=== PATIENT | male | born 1990 | race Hispanic/Latino ===

== ENCOUNTER 2021-06-13 10:13 | Emergency (ER) | payer SELFPAY ==
[~2021-06-13] VITALS: Ht 170.2 cm; Wt 172.4 kg
[2021-06-13] MEDS ORDERED: PREDNISONE20 MG PO (13:06)
[2021-06-13 13:17] VITALS: BP 146/81
== END 2021-06-13 13:18 | disposition home or self-care (01) ==
LOC: ER 10:24
DX: R05.9 Cough, unspecified (principal); J40 Bronchitis, not specified as acute or chronic; Z20.822 Contact with and (suspected) exposure to COVID-19
CPT/HCPCS: 71045; 99284; U0002

== ENCOUNTER 2022-04-24 16:45 | Inpatient (IN) | payer SELFPAY ==
[~2022-04-24] VITALS: Ht 170.2 cm; Wt 172.4 kg
[~2022-04-24 16:45] MED LIST: PREDNISONE20 MG PO
[2022-04-24] MEDS ORDERED: SODIUM CHLORIDE 0.9% 1000ML 1,000 ML IV STA (18:20)
[2022-04-24] MEDS ORDERED: ONDANSETRON HCL INJ 2MG/ML 2ML 2 MG/ML VIAL IV PRN (18:30)
[2022-04-24] MEDS ORDERED: FENTANYL CITRATE/PF 100MCG/2 ML INJ IV PRN (18:45)
[2022-04-24 18:57] LABS: BASOPHILS % 0.1 % (0.0-1.0); EOSINOPHILS # (AUTO) 0.1 (0.0-0.4); EOSINOPHILS % 0.5 % (0.0-6.0); HEMATOCRIT 46.8 % (38.2-49.6); HEMOGLOBIN 15.2 g/dL (14.0-18.0); LYMPHOCYTES # (AUTO) 1.9 (1.0-3.2); LYMPHOCYTES % 12.6 % (18.0-39.1); MEAN CORPUSCULAR HGB CONC 32.5 g/dL (31-35); MEAN CORPUSCULAR VOLUME 83.3 fL (81-99); MONOCYTES # (AUTO) 0.8 (0.2-0.8); NEUTROPHILS # (AUTO) 12.3 (2.1-6.9); NEUTROPHILS % 81.5 % (38.7-80.0); PLATELET COUNT 271 x10e3/uL (140-360); RED BLOOD COUNT 5.62 x10e6/uL (4.3-5.7); RED CELL DISTRIBUTION WIDTH 13.8 % (11.7-14.4)
[2022-04-24 19:17] LABS: ALBUMIN 3.2 g/dL (3.5-5.0); ALBUMIN/GLOBULIN RATIO 0.6 (0.8-2.0); CALCIUM 8.8 mg/dL (8.4-10.2); CREATININE, SERUM 0.74 mg/dL (0.72-1.25)
[2022-04-24] MEDS ORDERED: IOPAMIDOL 370 MG/ML 100 ML INFUS..BTL INJ ONE (19:40)
[2022-04-24] MEDS ORDERED: INSULIN REGULAR, HUMAN 100 UNIT/1 ML IV ONE (19:45)
[2022-04-24] MEDS ORDERED: FLUCONAZOLE 100 MG/NS 50 ML 50 ML IV STA (20:00)
[2022-04-24] MEDS ORDERED: Vancomycin IV 1 GM in SODIUM CHLORIDE 0.9% 250ML 250 ML IV STA (20:00)
[2022-04-24] MEDS: PIPERACILLIN/TAZOBACTAM 4.5 GM in SODIUM CHLORIDE 0.9% 100 ML IV SCH ×2 (20:00→20:34)
[2022-04-24 20:13] LABS: CLARITY,URINE HAZY (CLEAR); COLOR,URINE YELLOW (YELLOW); LEUKOCYTE ESTERASE ,URINE NEGATIVE (NEGATIVE); NITRITE,URINE NEGATIVE (NEGATIVE); PROTEIN,URINE DIPSTICK 1+ (NEGATIVE)
[2022-04-24 20:14] LABS: BACTERIA,URINE FEW /HPF; EPITHELIAL CELLS,URINE FEW /LPF; KETONES,URINE >=160 (NEGATIVE); URINE UROBILINOGEN 0.2 mg/dL (0.2 - 1)
[2022-04-24] MEDS: FLUCONAZOLE 100 MG TAB PO SCH (20:30)
[2022-04-24] MEDS: SODIUM CHLORIDE 0.9% 1000ML 1,000 ML IV SCH ×2 (21:30→23:47)
[2022-04-24] MEDS ORDERED: SODIUM CHLORIDE 0.9% 1000ML 1,000 ML IV SCH (21:30)
[2022-04-24] MEDS ORDERED: ACETAMINOPHEN 325 MG TAB PO ONE (22:45)
[2022-04-24 23:01] VITALS: BP 131/74
[2022-04-24 23:09] VITALS: BP 131/74
[2022-04-24 23:16] VITALS: BP 131/74
[2022-04-24] MEDS: Morphine 4mg INJECTION 4 MG/ML INJ IV PRN (23:48)
[2022-04-24 23:51] VITALS: BP 131/74
[2022-04-25] VITALS (8 sets, daily range): BP systolic 131–147; BP diastolic 74–95
[2022-04-25 06:43] LABS: BASOPHILS % 0.2 % (0.0-1.0); EOSINOPHILS # (AUTO) 0.1 (0.0-0.4); EOSINOPHILS % 0.3 % (0.0-6.0); HEMOGLOBIN 13.3 g/dL (14.0-18.0); LYMPHOCYTES # (AUTO) 2.3 (1.0-3.2); LYMPHOCYTES % 13.3 % (18.0-39.1); MEAN CORPUSCULAR HGB CONC 32.4 g/dL (31-35); MEAN CORPUSCULAR VOLUME 83.2 fL (81-99); NEUTROPHILS # (AUTO) 13.9 (2.1-6.9); NEUTROPHILS % 79.6 % (38.7-80.0); PLATELET COUNT 255 x10e3/uL (140-360); RED BLOOD COUNT 4.93 x10e6/uL (4.3-5.7); RED CELL DISTRIBUTION WIDTH 13.9 % (11.7-14.4)
[2022-04-25 07:09] LABS: ANION GAP 15.1 mmol/L (8-16); BLOOD UREA NITROGEN < 5 mg/dL (7-26); CALCIUM 8.4 mg/dL (8.4-10.2); CARBON DIOXIDE 23 mmol/L (22-29); CHLORIDE 100 mmol/L (98-107); CREATININE, SERUM 0.65 mg/dL (0.72-1.25); GLUCOSE 326 mg/dL (74-118); POTASSIUM 4.1 mmol/L (3.5-5.1); SODIUM 134 mmol/L (136-145)
[2022-04-25 07:15] LABS: BUN/CREATININE RATIO 8 (6-25)
[2022-04-25] MEDS ORDERED: DEXTROSE 50% SYRINGE 50 ML IV PRN (07:15)
[2022-04-25] MEDS ORDERED: ACETAMINOPHEN 325 MG TAB PO PRN (07:15)
[2022-04-25] MEDS: INSULIN REGULAR, HUMAN 100 UNIT/1 ML SQ SCH ×4 (09:29→21:39)
[2022-04-25] MEDS: FLUCONAZOLE 100 MG TAB PO SCH (09:33)
[2022-04-25] MEDS: PIPERACILLIN/TAZOBACTAM 4.5 GM in SODIUM CHLORIDE 0.9% 100 ML IV SCH ×2 (10:30→17:17)
[2022-04-25] MEDS: METFORMIN HCL 500 MG TAB PO SCH ×2 (12:00→17:17)
[2022-04-25] MEDS ORDERED: SEVOFLURANE INHAL SOLN 250 ML PEN BTL ONE (12:15)
[2022-04-25] MEDS ORDERED: POVIDONE IODINE 0.05% 0.05 % ML PO ONE (12:15)
[2022-04-25] MEDS ORDERED: ACETAMINOPHEN 1000 MG/100 ML IV ONE (12:15)
[2022-04-25] MEDS ORDERED: PROPOFOL IV EMULSION 10 MG/ML 20 ML VIAL ONE (12:15)
[2022-04-25] MEDS ORDERED: LIDOCAINE HCL 2% LOCAL INJ 5 ML SDV VIAL INJ ONE (12:15)
[2022-04-25] MEDS ORDERED: ONDANSETRON HCL INJ 2MG/ML 2ML 2 MG/ML VIAL ONE (12:15)
[2022-04-25] MEDS ORDERED: FENTANYL CITRATE/PF 100MCG/2 ML INJ ONE (12:38)
[2022-04-25] MEDS: Morphine 4mg INJECTION 4 MG/ML INJ IV PRN ×3 (13:25→21:43)
[2022-04-25] MEDS ORDERED: LIDOCAINE 1% W/EPINEPHRINE 20 ML VIAL ONE (16:37)
[2022-04-25] MEDS: ONDANSETRON HCL INJ 2MG/ML 2ML 2 MG/ML VIAL IV PRN (17:24)
[2022-04-25] MEDS: SODIUM CHLORIDE 0.9% 1000ML 1,000 ML IV SCH ×2 (17:40→20:36)
[2022-04-25] MEDS: INSULIN GLARGINE 100 UNITS/ML VIAL SQ SCH (21:38)
[2022-04-26] VITALS (7 sets, daily range): BP systolic 117–144; BP diastolic 67–95
[2022-04-26] MEDS: SODIUM CHLORIDE 0.9% 1000ML 1,000 ML IV SCH (05:08)
[2022-04-26 05:45] LABS: BASOPHILS % 0.3 % (0.0-1.0); EOSINOPHILS # (AUTO) 0.1 (0.0-0.4); EOSINOPHILS % 0.8 % (0.0-6.0); HEMOGLOBIN 13.6 g/dL (14.0-18.0); LYMPHOCYTES # (AUTO) 2.2 (1.0-3.2); LYMPHOCYTES % 15.2 % (18.0-39.1); MEAN CORPUSCULAR HGB CONC 33.2 g/dL (31-35); MEAN CORPUSCULAR VOLUME 81.5 fL (81-99); MONOCYTES # (AUTO) 0.8 (0.2-0.8); MONOCYTES % 5.1 % (4.4-11.3); NEUTROPHILS # (AUTO) 11.4 (2.1-6.9); NEUTROPHILS % 78.1 % (38.7-80.0); PLATELET COUNT 250 x10e3/uL (140-360); RED BLOOD COUNT 5.03 x10e6/uL (4.3-5.7)
[2022-04-26 05:56] LABS: ANION GAP 14.8 mmol/L (8-16); BLOOD UREA NITROGEN < 5 mg/dL (7-26); CALCIUM 8.5 mg/dL (8.4-10.2); CARBON DIOXIDE 25 mmol/L (22-29); CHLORIDE 101 mmol/L (98-107); CREATININE, SERUM 0.68 mg/dL (0.72-1.25); GLUCOSE 290 mg/dL (74-118); POTASSIUM 3.8 mmol/L (3.5-5.1); SODIUM 137 mmol/L (136-145)
[2022-04-26 05:58] LABS: BUN/CREATININE RATIO 7 (6-25)
[2022-04-26] MEDS: INSULIN REGULAR, HUMAN 100 UNIT/1 ML SQ SCH ×4 (07:42→21:00)
[2022-04-26] MEDS: PIPERACILLIN/TAZOBACTAM 4.5 GM in SODIUM CHLORIDE 0.9% 100 ML IV SCH (09:05)
[2022-04-26] MEDS: FLUCONAZOLE 100 MG TAB PO SCH (09:06)
[2022-04-26] MEDS: METFORMIN HCL 500 MG TAB PO SCH ×3 (09:06→16:41)
[2022-04-26] MEDS: Morphine 4mg INJECTION 4 MG/ML INJ IV PRN ×2 (09:43→20:30)
[2022-04-26] MEDS ORDERED: Morphine 4mg INJECTION 4 MG/ML INJ IV STA (12:34)
[2022-04-26] MEDS: Vancomycin IV 1 GM in SODIUM CHLORIDE 0.9% 250ML 250 ML IV SCH ×2 (12:55→20:34)
[2022-04-26] MEDS: ENOXAPARIN SOD INJ 40 MG/0.4 ML SYR SC SCH (16:42)
[2022-04-26] MEDS: ONDANSETRON HCL INJ 2MG/ML 2ML 2 MG/ML VIAL IV PRN (20:30)
[2022-04-26] MEDS: INSULIN GLARGINE 100 UNITS/ML VIAL SQ SCH (21:00)
[2022-04-27] VITALS (8 sets, daily range): BP systolic 123–153; BP diastolic 51–98
[2022-04-27] MEDS: ONDANSETRON HCL INJ 2MG/ML 2ML 2 MG/ML VIAL IV PRN (00:23)
[2022-04-27] MEDS: Morphine 4mg INJECTION 4 MG/ML INJ IV PRN ×2 (00:23→09:32)
[2022-04-27 05:42] LABS: BASOPHILS % 0.2 % (0.0-1.0); EOSINOPHILS # (AUTO) 0.2 (0.0-0.4); EOSINOPHILS % 1.6 % (0.0-6.0); HEMATOCRIT 40.3 % (38.2-49.6); HEMOGLOBIN 12.9 g/dL (14.0-18.0); LYMPHOCYTES # (AUTO) 2.3 (1.0-3.2); LYMPHOCYTES % 24.5 % (18.0-39.1); MEAN CORPUSCULAR HEMOGLOBIN 27.2 pg (28-32); MONOCYTES # (AUTO) 0.5 (0.2-0.8); MONOCYTES % 5.1 % (4.4-11.3); NEUTROPHILS # (AUTO) 6.3 (2.1-6.9); NEUTROPHILS % 68.3 % (38.7-80.0); PLATELET COUNT 245 x10e3/uL (140-360); RED BLOOD COUNT 4.74 x10e6/uL (4.3-5.7); RED CELL DISTRIBUTION WIDTH 13.8 % (11.7-14.4)
[2022-04-27] MEDS: METFORMIN HCL 500 MG TAB PO SCH ×3 (09:32→17:00)
[2022-04-27] MEDS ORDERED: SODIUM CHLORIDE 0.9% 250ML 250 ML ONE (09:50)
[2022-04-27] MEDS: INSULIN REGULAR, HUMAN 100 UNIT/1 ML SQ SCH ×4 (10:27→22:11)
[2022-04-27] MEDS ORDERED: TRAMADOL HCL 50 MG TAB PO PRN (10:30)
[2022-04-27] MEDS: CEFTRIAXONE 2 GM in SODIUM CHLORIDE 0.9% 100 ML IV SCH (12:30)
[2022-04-27] MEDS: GLIPIZIDE 5 MG TAB PO SCH (16:48)
[2022-04-27] MEDS: NYSTATIN/TRIAMCINOLONE 15 GM CR TOP SCH (17:00)
[2022-04-27] MEDS: ENOXAPARIN SOD INJ 40 MG/0.4 ML SYR SC SCH (17:00)
[2022-04-27] MEDS: ACETAMINOPHEN/CODEINE 300MG - 30MG TAB PO PRN (17:01)
[2022-04-27] MEDS ORDERED: INSULIN GLARGINE 100 UNITS/ML VIAL SQ SCH (21:00)
[2022-04-28] VITALS: BP 136/97
[2022-04-28] MEDS: ACETAMINOPHEN/CODEINE 300MG - 30MG TAB PO PRN ×2 (00:09→10:49)
[2022-04-28 04:10] VITALS: BP 133/75
[2022-04-28] MEDS: GLIPIZIDE 5 MG TAB PO SCH (07:30)
[2022-04-28] MEDS: INSULIN REGULAR, HUMAN 100 UNIT/1 ML SQ SCH (07:30)
[2022-04-28] MEDS: METFORMIN HCL 500 MG TAB PO SCH (08:00)
[2022-04-28 08:13] VITALS: BP 120/71
[2022-04-28] MEDS: CEFTRIAXONE 2 GM in SODIUM CHLORIDE 0.9% 100 ML IV SCH (08:32)
[2022-04-28] MEDS: NYSTATIN/TRIAMCINOLONE 15 GM CR TOP SCH (08:33)
[2022-04-28] MEDS ORDERED: KEFLEX125 MG/5 M PO (09:43)
[2022-04-28] MEDS ORDERED: METFORMIN HCL500 MG PO (09:43)
[2022-04-28] MEDS ORDERED: GLIPIZIDE5 MG PO (09:43)
[2022-04-28] MEDS ORDERED: ULTRAM 50MG50 MG PO (10:19)
== END 2022-04-28 10:58 | disposition home or self-care (01) | DRG 717 ==
LOC: ER 17:06 → ERHOLD 21:38 → MED/SURG2 22:53
PROVIDERS: ADMIT Internal Medicine; ATTEND Internal Medicine
PROC: 0V950ZZ Drainage of Scrotum, Open Approach (ICD-10-PCS; principal; 2022-04-25 16:07)
DX: N49.2 Inflammatory disorders of scrotum (principal); L03.314 Cellulitis of groin; N39.0 Urinary tract infection, site not specified; Z68.43 Body mass index [BMI] 50.0-59.9, adult; B95.1 Streptococcus, group B, as the cause of diseases classified elsewhere; E66.01 Morbid (severe) obesity due to excess calories; Z20.822 Contact with and (suspected) exposure to COVID-19; G47.33 Obstructive sleep apnea (adult) (pediatric); R59.1 Generalized enlarged lymph nodes; E11.69 Type 2 diabetes mellitus with other specified complication
CPT/HCPCS: 0223U; 36415; 74177; 80048; 80053; 81001; 82948; 83036; 83605; 84443; 85025; 87040; 87071; 87075; 87086; 87205; 94799; 96361; 96372; 99251; 99284; J0696; J1650; J1817; J2001; J2270; J2405; J2543; J3010; J3370; J7030; J7050; Q9967

== ENCOUNTER 2022-06-10 02:12 | Inpatient (IN) | payer SELFPAY ==
[~2022-06-10] VITALS: Ht 170.2 cm; Wt 172.4 kg
[2022-06-10] VITALS (8 sets, daily range): BP systolic 104–125; BP diastolic 62–75
[~2022-06-10 02:12] MED LIST changes: +GLIPIZIDE5 MG PO; +KEFLEX125 MG/5 M PO; +METFORMIN HCL500 MG PO; +ULTRAM 50MG50 MG PO
[2022-06-10] MEDS ORDERED: ACETAMINOPHEN 325 MG TAB PO ONE (02:30)
[2022-06-10 03:00] LABS: BASOPHILS % 0.2 % (0.0-1.0); EOSINOPHILS % 0.1 % (0.0-6.0); HEMATOCRIT 42.6 % (38.2-49.6); HEMOGLOBIN 13.8 g/dL (14.0-18.0); LYMPHOCYTES # (AUTO) 2.4 (1.0-3.2); LYMPHOCYTES % 13.4 % (18.0-39.1); MEAN CORPUSCULAR HEMOGLOBIN 27.8 pg (28-32); MEAN CORPUSCULAR HGB CONC 32.4 g/dL (31-35); MEAN CORPUSCULAR VOLUME 85.9 fL (81-99); MONOCYTES % 5.2 % (4.4-11.3); NEUTROPHILS # (AUTO) 14.7 (2.1-6.9); NEUTROPHILS % 80.7 % (38.7-80.0); PLATELET COUNT 299 x10e3/uL (140-360); RED BLOOD COUNT 4.96 x10e6/uL (4.3-5.7)
[2022-06-10 03:18] LABS: ALBUMIN/GLOBULIN RATIO 0.6 (0.8-2.0); ANION GAP 16.4 mmol/L (8-16); CALCIUM 9.4 mg/dL (8.4-10.2); CREATININE, SERUM 0.77 mg/dL (0.72-1.25); POTASSIUM 4.4 mmol/L (3.5-5.1)
[2022-06-10] MEDS ORDERED: ONDANSETRON HCL INJ 2MG/ML 2ML 2 MG/ML VIAL IV STA (03:28)
[2022-06-10] MEDS ORDERED: ACETAMINOPHEN 1000 MG/100 ML IV STA (03:30)
[2022-06-10] MEDS ORDERED: IOPAMIDOL 370 MG/ML 100 ML INFUS..BTL INJ ONE (03:45)
[2022-06-10] MEDS ORDERED: ACETAMINOPHEN 1000 MG/100 ML 100 ML IV ONE (03:48)
[2022-06-10 04:01] LABS: CLARITY,URINE SL CLOUDY (CLEAR); COLOR,URINE YELLOW (YELLOW); KETONES,URINE 2+ (NEGATIVE); LEUKOCYTE ESTERASE ,URINE NEGATIVE (NEGATIVE); NITRITE,URINE NEGATIVE (NEGATIVE); PROTEIN,URINE DIPSTICK 1+ (NEGATIVE); URINE UROBILINOGEN 0.2 mg/dL (0.2 - 1)
[2022-06-10 04:05] LABS: BACTERIA,URINE FEW /HPF; EPITHELIAL CELLS,URINE MODERATE /LPF; MUCUS,URINE MODERATE (RARE); RBC,URINE 0-5 /HPF (0-5); WBC,URINE (MAN) 0-5 /HPF (0-5)
[2022-06-10] MEDS ORDERED: ONDANSETRON HCL INJ 2MG/ML 2ML 2 MG/ML VIAL IV PRN (05:00)
[2022-06-10] MEDS ORDERED: DEXTROSE 50% SYRINGE 50 ML IV PRN (05:00)
[2022-06-10] MEDS ORDERED: ACETAMINOPHEN 325 MG TAB PO PRN (05:00)
[2022-06-10] MEDS: Vancomycin IV 1 GM in SODIUM CHLORIDE 0.9% 250ML 250 ML IV SCH ×2 (06:28→16:57)
[2022-06-10] MEDS: SODIUM CHLORIDE 0.9% 1000ML 1,000 ML IV SCH ×3 (06:28→20:09)
[2022-06-10] MEDS: INSULIN REGULAR, HUMAN 100 UNIT/1 ML SQ SCH ×4 (08:41→21:00)
[2022-06-10] MEDS: Morphine 4mg INJECTION 4 MG/ML INJ IV PRN ×3 (08:43→20:17)
[2022-06-10] MEDS ORDERED: LIDOCAINE 1% 10 ML MULTIDOSE VIAL IJ ONE (15:45)
[2022-06-10] MEDS ORDERED: SODIUM CHLORIDE 0.9% 250ML 250 ML ONE (17:12)
[2022-06-10] MEDS ORDERED: Morphine 2mg Syringe 2 MG/ML SYR IV ONE (19:00)
[2022-06-11] VITALS: BP 127/67
[2022-06-11] MEDS: Morphine 4mg INJECTION 4 MG/ML INJ IV PRN ×4 (00:13→15:35)
[2022-06-11] MEDS: SODIUM CHLORIDE 0.9% 1000ML 1,000 ML IV SCH ×2 (02:54→12:00)
[2022-06-11] MEDS: Vancomycin IV 1 GM in SODIUM CHLORIDE 0.9% 250ML 250 ML IV SCH ×2 (02:54→15:46)
[2022-06-11 04:00] VITALS: BP 123/63
[2022-06-11 05:34] LABS: BASOPHILS % 0.2 % (0.0-1.0); EOSINOPHILS % 0.1 % (0.0-6.0); HEMATOCRIT 38.7 % (38.2-49.6); LYMPHOCYTES # (AUTO) 2.2 (1.0-3.2); LYMPHOCYTES % 13.5 % (18.0-39.1); MEAN CORPUSCULAR HEMOGLOBIN 27.3 pg (28-32); MONOCYTES # (AUTO) 0.7 (0.2-0.8); MONOCYTES % 4.4 % (4.4-11.3); NEUTROPHILS % 81.4 % (38.7-80.0); PLATELET COUNT 255 x10e3/uL (140-360); RED CELL DISTRIBUTION WIDTH 13.4 % (11.7-14.4)
[2022-06-11 05:51] LABS: ALBUMIN 2.5 g/dL (3.5-5.0); ALBUMIN/GLOBULIN RATIO 0.6 (0.8-2.0); ANION GAP 13.6 mmol/L (8-16); CALCIUM 8.3 mg/dL (8.4-10.2); CREATININE, SERUM 0.64 mg/dL (0.72-1.25); POTASSIUM 3.6 mmol/L (3.5-5.1)
[2022-06-11] MEDS: INSULIN REGULAR, HUMAN 100 UNIT/1 ML SQ SCH ×3 (07:30→16:30)
[2022-06-11 08:29] VITALS: BP 125/75
[2022-06-11 09:12] VITALS: BP 125/75
[2022-06-11 11:52] VITALS: BP 135/74
[2022-06-11] MEDS ORDERED: METFORMIN HCL500 MG PO (13:08)
[2022-06-11] MEDS ORDERED: GLIPIZIDE5 MG PO (13:08)
[2022-06-11] MEDS ORDERED: AMOXICILLIN500 MG PO (13:12)
[2022-06-11] MEDS ORDERED: ULTRAM50 MG PO (13:14)
[2022-06-11 16:25] VITALS: BP 138/90
[2022-06-11] MEDS ORDERED: ONDANSETRON HCL 4 MG ORAL DISINTEGRATING TAB PO PRN (18:15)
== END 2022-06-11 18:56 | disposition home or self-care (01) | DRG 603 ==
LOC: ER 02:20 → ERHOLD 04:55 → MED/SURG3 06:07
PROVIDERS: ADMIT Internal Medicine; ATTEND Internal Medicine
PROC: 0J9C0ZZ Drainage of Pelvic Region Subcutaneous Tissue and Fascia, Open Approach (ICD-10-PCS; principal; 2022-06-10)
DX: L03.314 Cellulitis of groin (principal); Z68.43 Body mass index [BMI] 50.0-59.9, adult; E66.01 Morbid (severe) obesity due to excess calories; E11.9 Type 2 diabetes mellitus without complications; Z79.84 Long term (current) use of oral hypoglycemic drugs; Z83.3 Family history of diabetes mellitus; Z82.49 Family history of ischemic heart disease and other diseases of the circulatory system
CPT/HCPCS: 36415; 71045; 74177; 80053; 80202; 81001; 82948; 83605; 85025; 87040; 87071; 87205; 87400; 99284; J1817; J2270; J2405; J2543; J3370; J7030; J7050; Q9967

== ENCOUNTER 2022-07-07 08:52 | Emergency (ER) | payer SELFPAY ==
[~2022-07-07] VITALS: Ht 322.6 cm; Wt 172.4 kg
[~2022-07-07 08:52] MED LIST changes: +AMOXICILLIN500 MG PO; +ULTRAM50 MG PO
[2022-07-07 10:23] LABS: CLARITY,URINE CLOUDY (CLEAR); COLOR,URINE YELLOW (YELLOW); KETONES,URINE 1+ (NEGATIVE); LEUKOCYTE ESTERASE ,URINE NEGATIVE (NEGATIVE); NITRITE,URINE NEGATIVE (NEGATIVE); PROTEIN,URINE DIPSTICK 2+ (NEGATIVE); URINE UROBILINOGEN 1 mg/dL (0.2 - 1)
[2022-07-07 10:40] LABS: BACTERIA,URINE MODERATE /HPF; EPITHELIAL CELLS,URINE FEW /LPF; WBC,URINE (MAN) >50 /HPF (0-5)
[2022-07-07 10:41] LABS: RBC,URINE >50 /HPF (0-5)
[2022-07-07] MEDS ORDERED: CIPRO500 MG PO (11:06)
== END 2022-07-07 11:08 | disposition home or self-care (01) ==
LOC: ER 08:59
DX: R31.9 Hematuria, unspecified (principal); R10.30 Lower abdominal pain, unspecified; K57.90 Diverticulosis of intestine, part unspecified, without perforation or abscess without bleeding; K76.0 Fatty (change of) liver, not elsewhere classified; R16.1 Splenomegaly, not elsewhere classified; E66.01 Morbid (severe) obesity due to excess calories
CPT/HCPCS: 74176; 81001; 99284

== ENCOUNTER 2023-01-16 19:53 | Emergency (ER) | payer OTHER ==
[~2023-01-16] VITALS: Ht 322.6 cm; Wt 172.4 kg
[~2023-01-16 19:53] MED LIST changes: +CIPRO500 MG PO
[2023-01-16 20:30] LABS: BASOPHILS % 0.3 % (0.0-1.0); EOSINOPHILS # (AUTO) 0.2 (0.0-0.4); EOSINOPHILS % 1.3 % (0.0-6.0); HEMATOCRIT 46.8 % (38.2-49.6); HEMOGLOBIN 15.4 g/dL (14.0-18.0); LYMPHOCYTES # (AUTO) 3.7 (1.0-3.2); LYMPHOCYTES % 28.9 % (18.0-39.1); MEAN CORPUSCULAR HEMOGLOBIN 26.8 pg (28-32); MEAN CORPUSCULAR HGB CONC 32.9 g/dL (31-35); MEAN CORPUSCULAR VOLUME 81.4 fL (81-99); MONOCYTES # (AUTO) 0.5 (0.2-0.8); MONOCYTES % 3.8 % (4.4-11.3); NEUTROPHILS # (AUTO) 8.3 (2.1-6.9); NEUTROPHILS % 65.4 % (38.7-80.0); PLATELET COUNT 214 x10e3/uL (140-360); RED BLOOD COUNT 5.75 x10e6/uL (4.3-5.7); RED CELL DISTRIBUTION WIDTH 14.2 % (11.7-14.4)
[2023-01-16 20:41] LABS: CLARITY,URINE CLOUDY (CLEAR); COLOR,URINE YELLOW (YELLOW); LEUKOCYTE ESTERASE ,URINE NEGATIVE (NEGATIVE)
[2023-01-16 20:42] LABS: KETONES,URINE NEGATIVE (NEGATIVE); NITRITE,URINE NEGATIVE (NEGATIVE); PROTEIN,URINE DIPSTICK 1+ (NEGATIVE); URINE UROBILINOGEN 0.2 mg/dL (0.2 - 1)
[2023-01-16 20:47] LABS: BACTERIA,URINE MANY /HPF; EPITHELIAL CELLS,URINE FEW /LPF; MUCUS,URINE MANY (RARE); RBC,URINE 0-5 /HPF (0-5); WBC,URINE (MAN) 21-50 /HPF (0-5)
[2023-01-16 20:48] LABS: ALBUMIN 3.6 g/dL (3.5-5.0); ALBUMIN/GLOBULIN RATIO 0.7 (0.8-2.0); ANION GAP 14.8 mmol/L (8-16); CALCIUM 9.3 mg/dL (8.4-10.2); CREATININE, SERUM 0.76 mg/dL (0.72-1.25); POTASSIUM 3.8 mmol/L (3.5-5.1)
[2023-01-16] MEDS ORDERED: CEFTRIAXONE 1 GM VIAL ONE (21:35)
[2023-01-16] MEDS ORDERED: CEFDINIR300 MG PO (21:36)
[2023-01-16] MEDS ORDERED: ACETAMINOPHEN 325 MG TAB PO ONE (21:45)
[2023-01-16 22:14] VITALS: BP 118/62
== END 2023-01-16 22:05 | disposition home or self-care (01) ==
LOC: ER 19:59
DX: R51.9 Headache, unspecified (principal); N39.0 Urinary tract infection, site not specified; E66.01 Morbid (severe) obesity due to excess calories
CPT/HCPCS: 36415; 70450; 80053; 81001; 85025; 87086; 87186; 99284; J0696

== ENCOUNTER 2023-03-11 15:03 | Inpatient (IN) | payer OTHER ==
[~2023-03-11] VITALS: Ht 172.7 cm; Wt 190.5 kg
[~2023-03-11 15:03] MED LIST changes: +CEFDINIR300 MG PO
[2023-03-11 15:53] LABS: CLARITY,URINE CLEAR (CLEAR); COLOR,URINE YELLOW (YELLOW); KETONES,URINE NEGATIVE (NEGATIVE); LEUKOCYTE ESTERASE ,URINE NEGATIVE (NEGATIVE); NITRITE,URINE NEGATIVE (NEGATIVE); PROTEIN,URINE DIPSTICK NEGATIVE (NEGATIVE); URINE UROBILINOGEN 0.2 mg/dL (0.2 - 1)
[2023-03-11 16:03] LABS: WBC,URINE (MAN) 0-5 /HPF (0-5)
[2023-03-11 16:04] LABS: BACTERIA,URINE FEW /HPF; EPITHELIAL CELLS,URINE FEW /LPF; YEAST,URINE FEW
[2023-03-11 16:05] LABS: BASOPHILS % 0.3 % (0.0-1.0); EOSINOPHILS # (AUTO) 0.2 (0.0-0.4); EOSINOPHILS % 1.6 % (0.0-6.0); HEMOGLOBIN 14.5 g/dL (14.0-18.0); LYMPHOCYTES # (AUTO) 3.8 (1.0-3.2); LYMPHOCYTES % 30.4 % (18.0-39.1); MEAN CORPUSCULAR HEMOGLOBIN 26.5 pg (28-32); MEAN CORPUSCULAR HGB CONC 33.7 g/dL (31-35); MEAN CORPUSCULAR VOLUME 78.6 fL (81-99); MONOCYTES # (AUTO) 0.7 (0.2-0.8); MONOCYTES % 5.2 % (4.4-11.3); NEUTROPHILS # (AUTO) 7.8 (2.1-6.9); NEUTROPHILS % 62.3 % (38.7-80.0); PLATELET COUNT 301 x10e3/uL (140-360); RED BLOOD COUNT 5.47 x10e6/uL (4.3-5.7); RED CELL DISTRIBUTION WIDTH 13.4 % (11.7-14.4)
[2023-03-11 16:27] LABS: ALBUMIN 3.3 g/dL (3.5-5.0); ALBUMIN/GLOBULIN RATIO 0.7 (0.8-2.0); ANION GAP 13.8 mmol/L (8-16); CALCIUM 9.1 mg/dL (8.4-10.2); CREATININE, SERUM 0.78 mg/dL (0.72-1.25); POTASSIUM 3.8 mmol/L (3.5-5.1)
[2023-03-11] MEDS ORDERED: LACTATED RINGER'S 1,000 ML INJ ONE (16:45)
[2023-03-11] MEDS ORDERED: INSULIN REGULAR, HUMAN 100 UNIT/1 ML SQ ONE (16:45)
[2023-03-11] MEDS ORDERED: IOPAMIDOL 370 MG/ML 100 ML INFUS..BTL INJ ONE (17:09)
[2023-03-11] MEDS: NYSTATIN 15 GM POWDER UD BTL TOP SCH (19:30)
[2023-03-11 20:00] VITALS: BP 142/90; PULSE 101; RESP 18; TEMP 97.7; O2SAT 96
[2023-03-11] MEDS: Vancomycin IV 1 GM in SODIUM CHLORIDE 0.9% 250ML 250 ML IV SCH (20:10)
[2023-03-11 20:48] VITALS: BP 142/90; PULSE 101; RESP 18; TEMP 97.7; O2SAT 96
[2023-03-12] VITALS (7 sets, daily range): BP systolic 127–141; BP diastolic 58–81; PULSE 67–102; RESP 18–21; TEMP 97.8–98.6; O2SAT 98–99
[2023-03-12] MEDS: Vancomycin IV 1 GM in SODIUM CHLORIDE 0.9% 250ML 250 ML IV SCH ×2 (06:49→17:28)
[2023-03-12] MEDS ORDERED: LOSARTAN POTASS25 MG PO (08:27)
[2023-03-12] MEDS ORDERED: CEFDINIR300 MG PO (08:27)
[2023-03-12] MEDS ORDERED: NYSTATIN15 G1 TOP (08:27)
[2023-03-12] MEDS ORDERED: DECARA1250 MCG PO (08:27)
[2023-03-12] MEDS ORDERED: METFORMIN HCL1000 MG PO (08:27)
[2023-03-12] MEDS ORDERED: DEXTROSE 50% SYRINGE 50 ML IV PRN (08:45)
[2023-03-12] MEDS: NYSTATIN 15 GM POWDER UD BTL TOP SCH ×2 (09:46→17:29)
[2023-03-12] MEDS: INSULIN REGULAR, HUMAN 100 UNIT/1 ML SQ SCH ×3 (12:48→21:03)
[2023-03-12] MEDS: ENOXAPARIN SOD INJ 40 MG/0.4 ML SYR SC SCH (20:58)
[2023-03-13] VITALS (8 sets, daily range): BP systolic 124–163; BP diastolic 55–94; PULSE 66–97; RESP 18–21; TEMP 98–99; O2SAT 92–100
[2023-03-13 06:11] LABS: BASOPHILS % 0.4 % (0.0-1.0); EOSINOPHILS # (AUTO) 0.3 (0.0-0.4); EOSINOPHILS % 2.6 % (0.0-6.0); HEMATOCRIT 42.7 % (38.2-49.6); HEMOGLOBIN 13.7 g/dL (14.0-18.0); MEAN CORPUSCULAR HEMOGLOBIN 26.5 pg (28-32); MEAN CORPUSCULAR HGB CONC 32.1 g/dL (31-35); MEAN CORPUSCULAR VOLUME 82.6 fL (81-99); MONOCYTES # (AUTO) 0.6 (0.2-0.8); MONOCYTES % 5.9 % (4.4-11.3); NEUTROPHILS # (AUTO) 6.1 (2.1-6.9); NEUTROPHILS % 60.6 % (38.7-80.0); PLATELET COUNT 264 x10e3/uL (140-360); RED BLOOD COUNT 5.17 x10e6/uL (4.3-5.7); RED CELL DISTRIBUTION WIDTH 13.5 % (11.7-14.4)
[2023-03-13 06:27] LABS: ANION GAP 14.7 mmol/L (8-16); CALCIUM 8.3 mg/dL (8.4-10.2); CREATININE, SERUM 0.69 mg/dL (0.72-1.25); POTASSIUM 3.7 mmol/L (3.5-5.1)
[2023-03-13] MEDS: Vancomycin IV 1 GM in SODIUM CHLORIDE 0.9% 250ML 250 ML IV SCH (06:52)
[2023-03-13] MEDS ORDERED: Vancomycin IV 1.5 GM in SODIUM CHLORIDE 0.9% 250ML 250 ML IV SCH (09:30)
[2023-03-13] MEDS: NYSTATIN 15 GM POWDER UD BTL TOP SCH ×2 (09:48→18:10)
[2023-03-13] MEDS: INSULIN REGULAR, HUMAN 100 UNIT/1 ML SQ SCH ×4 (09:48→20:56)
[2023-03-13] MEDS: ENOXAPARIN SOD INJ 40 MG/0.4 ML SYR SC SCH ×2 (09:48→20:50)
[2023-03-13] MEDS: HYDROCODONE/APAP 7.5MG-325MG 1 EA TAB PO PRN ×2 (12:14→20:50)
[2023-03-13] MEDS: Vancomycin IV 1.5 GM in SODIUM CHLORIDE 0.9% 250ML 250 ML IV SCH (18:10)
[2023-03-13] MEDS ORDERED: INSULIN REGULAR, HUMAN 100 UNIT/1 ML SQ ONE (20:45)
[2023-03-13] MEDS: INSULIN GLARGINE 100 UNITS/ML VIAL SQ SCH (23:45)
[2023-03-14] VITALS (8 sets, daily range): BP systolic 121–155; BP diastolic 63–94; PULSE 67–98; RESP 17–20; TEMP 97.7–98.3; O2SAT 96–99
[2023-03-14] MEDS ORDERED: SODIUM CHLORIDE 0.9% 250ML 250 ML ONE (04:40)
[2023-03-14 06:05] LABS: BASOPHILS % 0.3 % (0.0-1.0); EOSINOPHILS # (AUTO) 0.3 (0.0-0.4); EOSINOPHILS % 2.7 % (0.0-6.0); HEMATOCRIT 40.8 % (38.2-49.6); HEMOGLOBIN 13.2 g/dL (14.0-18.0); LYMPHOCYTES # (AUTO) 3.6 (1.0-3.2); LYMPHOCYTES % 35.1 % (18.0-39.1); MEAN CORPUSCULAR HEMOGLOBIN 26.3 pg (28-32); MEAN CORPUSCULAR HGB CONC 32.4 g/dL (31-35); MEAN CORPUSCULAR VOLUME 81.3 fL (81-99); MONOCYTES # (AUTO) 0.6 (0.2-0.8); NEUTROPHILS # (AUTO) 5.7 (2.1-6.9); NEUTROPHILS % 55.7 % (38.7-80.0); PLATELET COUNT 276 x10e3/uL (140-360); RED BLOOD COUNT 5.02 x10e6/uL (4.3-5.7); RED CELL DISTRIBUTION WIDTH 13.5 % (11.7-14.4)
[2023-03-14] MEDS: HYDROCODONE/APAP 7.5MG-325MG 1 EA TAB PO PRN ×4 (06:09→21:16)
[2023-03-14] MEDS: Vancomycin IV 1.5 GM in SODIUM CHLORIDE 0.9% 250ML 250 ML IV SCH (06:11)
[2023-03-14 06:31] LABS: ANION GAP 14.6 mmol/L (8-16); CALCIUM 8.5 mg/dL (8.4-10.2); CREATININE, SERUM 0.65 mg/dL (0.72-1.25); POTASSIUM 3.6 mmol/L (3.5-5.1)
[2023-03-14] MEDS: INSULIN REGULAR, HUMAN 100 UNIT/1 ML SQ SCH ×4 (07:30→21:11)
[2023-03-14] MEDS: ENOXAPARIN SOD INJ 40 MG/0.4 ML SYR SC SCH ×2 (08:49→21:04)
[2023-03-14] MEDS: NYSTATIN 15 GM POWDER UD BTL TOP SCH ×2 (09:00→16:51)
[2023-03-14] MEDS ORDERED: ONDANSETRON HCL INJ 2MG/ML 2ML 2 MG/ML VIAL ONE (12:52)
[2023-03-14] MEDS ORDERED: LIDOCAINE HCL 2% LOCAL INJ 5 ML SDV VIAL INJ ONE (12:52)
[2023-03-14] MEDS ORDERED: SEVOFLURANE INHAL SOLN 250 ML PEN BTL ONE (12:52)
[2023-03-14] MEDS ORDERED: PROPOFOL IV EMULSION 10 MG/ML 20 ML VIAL ONE (12:52)
[2023-03-14] MEDS ORDERED: POVIDONE IODINE 0.05% 0.05 % ML PO ONE (12:52)
[2023-03-14] MEDS ORDERED: SUCCINYLCHOLINE CHLORIDE 20 MG/ML 10ML VIAL ONE (12:52)
[2023-03-14] MEDS ORDERED: IOPAMIDOL 610MG/1ML 300 MG/ML VIAL IV ONE (13:50)
[2023-03-14] MEDS ORDERED: FENTANYL CITRATE/PF 100MCG/2 ML INJ ONE (13:57)
[2023-03-14] MEDS: FENTANYL CITRATE/PF 100MCG/2 ML INJ ONE ×2 (14:59→15:16)
[2023-03-14] MEDS: PHENAZOPYRIDINE HCL 100 MG TAB PO PRN ×2 (15:14→21:03)
[2023-03-14] MEDS ORDERED: VANCOMYCIN 300 ML IV SCH (18:00)
[2023-03-14] MEDS: INSULIN GLARGINE 100 UNITS/ML VIAL SQ SCH (21:09)
[2023-03-15] MEDS: Morphine 4mg INJECTION 4 MG/ML INJ IV PRN ×6 (00:10→23:29)
[2023-03-15] MEDS: CEPACOL SORE THROAT LOZENGES PO PRN ×3 (00:10→19:26)
[2023-03-15 00:18] VITALS: BP 134/87; PULSE 93; RESP 18; TEMP 97.9; O2SAT 97
[2023-03-15 08:43] VITALS: BP 136/91; PULSE 88; RESP 18; TEMP 97.9; O2SAT 95
[2023-03-15] MEDS: INSULIN REGULAR, HUMAN 100 UNIT/1 ML SQ SCH ×4 (09:10→21:12)
[2023-03-15] MEDS: ENOXAPARIN SOD INJ 40 MG/0.4 ML SYR SC SCH ×2 (09:11→20:52)
[2023-03-15] MEDS: NYSTATIN 15 GM POWDER UD BTL TOP SCH ×2 (09:11→17:23)
[2023-03-15] MEDS: VANCOMYCIN 300 ML IV SCH ×2 (09:17→20:52)
[2023-03-15 10:15] VITALS: BP 136/91; PULSE 88; RESP 18; TEMP 97.9; O2SAT 95
[2023-03-15] MEDS ORDERED: ACETAMINOPHEN 325 MG TAB PO PRN (12:15)
[2023-03-15 12:57] VITALS: BP 139/93; PULSE 89; RESP 16; TEMP 98; O2SAT 95
[2023-03-15 16:00] VITALS: BP 153/94; PULSE 97; RESP 20; TEMP 97.5; O2SAT 97
[2023-03-15] MEDS: PHENAZOPYRIDINE HCL 100 MG TAB PO PRN (19:26)
[2023-03-15 20:00] VITALS: BP 153/94; PULSE 97; RESP 20; TEMP 97.5; O2SAT 97
[2023-03-15] MEDS: INSULIN GLARGINE 100 UNITS/ML VIAL SQ SCH (21:13)
[2023-03-16] VITALS: BP 139/91; PULSE 90; RESP 20; TEMP 98.1; O2SAT 97
[2023-03-16] MEDS: PHENAZOPYRIDINE HCL 100 MG TAB PO PRN ×2 (03:24→17:07)
[2023-03-16] MEDS: Morphine 4mg INJECTION 4 MG/ML INJ IV PRN ×3 (03:30→17:07)
[2023-03-16 08:16] VITALS: BP 144/90; PULSE 88; RESP 22; TEMP 98.4; O2SAT 97
[2023-03-16 09:00] VITALS: BP 144/90; PULSE 88; RESP 22; TEMP 98.4; O2SAT 97
[2023-03-16] MEDS: VANCOMYCIN 300 ML IV SCH (09:13)
[2023-03-16] MEDS: SODIUM CHLORIDE FLUSH 10 ML SYR INJ PRN ×2 (09:14→17:09)
[2023-03-16] MEDS: NYSTATIN 15 GM POWDER UD BTL TOP SCH ×2 (09:14→17:11)
[2023-03-16] MEDS: ENOXAPARIN SOD INJ 40 MG/0.4 ML SYR SC SCH (09:14)
[2023-03-16] MEDS: CEPACOL SORE THROAT LOZENGES PO PRN (09:15)
[2023-03-16] MEDS: INSULIN REGULAR, HUMAN 100 UNIT/1 ML SQ SCH ×3 (09:27→17:19)
[2023-03-16] MEDS: HYDROCODONE/APAP 7.5MG-325MG 1 EA TAB PO PRN ×2 (12:12→20:04)
[2023-03-16 12:31] VITALS: BP 142/91; PULSE 83; RESP 22; TEMP 98; O2SAT 99
[2023-03-16] MEDS ORDERED: Insulin Glargine SQ (16:29)
[2023-03-16] MEDS ORDERED: AUGMENTIN 500-1 EACH PO (16:33)
[2023-03-16 16:54] VITALS: BP 164/84; PULSE 90; RESP 20; TEMP 98.3; O2SAT 97
== END 2023-03-16 20:46 | disposition home or self-care (01) | DRG 728 ==
LOC: ER 15:14 → ERHOLD 18:40 → MED/SURG3 20:25
PROVIDERS: ADMIT Internal Medicine; ATTEND Internal Medicine
PROC: BT141ZZ Fluoroscopy of Kidneys, Ureters and Bladder using Low Osmolar Contrast (ICD-10-PCS; 2023-03-14)
PROC: 02HV33Z Insertion of Infusion Device into Superior Vena Cava, Percutaneous Approach (ICD-10-PCS; 2023-03-14)
PROC: B548ZZA Ultrasonography of Superior Vena Cava, Guidance (ICD-10-PCS; 2023-03-14)
PROC: 0T7D8ZZ Dilation of Urethra, Via Natural or Artificial Opening Endoscopic (ICD-10-PCS; principal; 2023-03-14 14:04)
DX: N47.1 Phimosis (principal); Z68.44 Body mass index [BMI] 60.0-69.9, adult; N39.0 Urinary tract infection, site not specified; N49.2 Inflammatory disorders of scrotum; E66.01 Morbid (severe) obesity due to excess calories; E78.5 Hyperlipidemia, unspecified; N35.919 Unspecified urethral stricture, male, unspecified site; E11.65 Type 2 diabetes mellitus with hyperglycemia; I10 Essential (primary) hypertension; K66.0 Peritoneal adhesions (postprocedural) (postinfection); R30.0 Dysuria; D72.829 Elevated white blood cell count, unspecified; R31.29 Other microscopic hematuria; Z79.84 Long term (current) use of oral hypoglycemic drugs; Z87.440 Personal history of urinary (tract) infections; Z83.3 Family history of diabetes mellitus; Z20.822 Contact with and (suspected) exposure to COVID-19
CPT/HCPCS: 0223U; 36415; 36569; 71045; 74177; 74420; 80048; 80053; 80202; 81001; 82948; 83036; 83735; 85025; 87086; 99284; C1758; J0330; J1650; J1815; J2001; J2270; J2405; J2543; J7050; Q9967

== ENCOUNTER 2024-04-11 06:43 | Inpatient (IN) | payer OTHER ==
[2024-04-11] VITALS (11 sets, daily range): BP systolic 123–150; BP diastolic 83–86; PULSE 102–120; RESP 18–20; TEMP 98.4–99.9; O2SAT 94–97
[~2024-04-11] VITALS: Ht 170.2 cm; Wt 186.4 kg
[~2024-04-11 06:43] MED LIST changes: +ATORVASTATIN CA20 MG PO; +AUGMENTIN 500-1 EACH PO; +BUPROPION HCL200 MG PO; +BYSTOLIC10 MG PO; +DECARA1250 MCG PO; +DIFLUCAN200 MG PO; +Insulin Glargine SQ; +LOSARTAN POTASS25 MG PO; +METFORMIN HCL1000 MG PO; +NYSTATIN15 G1 TOP; +OLMESARTAN MEDO40 MG PO; +PYRIDIUM200 MG PO; +SYNJARDY 12.5-1 EACH PO
[2024-04-11 07:18] LABS: BASOPHILS % 0.2 % (0.0-1.0); EOSINOPHILS % 0.1 % (0.0-6.0); HEMATOCRIT 44.1 % (38.2-49.6); HEMOGLOBIN 14.6 g/dL (14.0-18.0); LYMPHOCYTES # (AUTO) 2.1 (1.0-3.2); LYMPHOCYTES % 10.9 % (18.0-39.1); MEAN CORPUSCULAR HEMOGLOBIN 26.8 pg (28-32); MEAN CORPUSCULAR HGB CONC 33.1 g/dL (31-35); MEAN CORPUSCULAR VOLUME 81.1 fL (81-99); MONOCYTES # (AUTO) 1.1 (0.2-0.8); MONOCYTES % 5.9 % (4.4-11.3); NEUTROPHILS # (AUTO) 15.6 (2.1-6.9); NEUTROPHILS % 82.5 % (38.7-80.0); PLATELET COUNT 219 x10e3/uL (140-360); RED BLOOD COUNT 5.44 x10e6/uL (4.3-5.7); RED CELL DISTRIBUTION WIDTH 13.5 % (11.7-14.4); WHITE BLOOD COUNT 18.86 x10e3/uL (4.8-10.8)
[2024-04-11 07:25] LABS: INR 1.05; PROTHROMBIN TIME 14.4 seconds (11.9-14.5)
[2024-04-11 07:26] LABS: PARTIAL THROMBOPLASTIN TIME 31.8 seconds (23.8-35.5)
[2024-04-11] MEDS ORDERED: Vancomycin IV 1 GM in SODIUM CHLORIDE 0.9% 250ML 250 ML IV SCH ×2 (07:30→10:30)
[2024-04-11 07:32] LABS: ALBUMIN 3.2 g/dL (3.5-5.0); ALBUMIN/GLOBULIN RATIO 0.7 (0.8-2.0); ANION GAP 15.1 mmol/L (8-16); BILIRUBIN,TOTAL 0.9 mg/dL (0.2-1.2); CREATININE, SERUM 0.77 mg/dL (0.72-1.25); POTASSIUM 4.1 mmol/L (3.5-5.1)
[2024-04-11] MEDS: METRONIDAZOLE 500MG/NS 100ML 100 ML IV SCH (08:26)
[2024-04-11] MEDS: SODIUM CHLORIDE 0.9% IV ONE (08:26)
[2024-04-11] MEDS: ONDANSETRON HCL INJ 2MG/ML 2ML 2 MG/ML VIAL IV STA (08:27)
[2024-04-11] MEDS: Morphine 4mg INJECTION 4 MG/ML INJ IV PRN ×2 (08:28→12:40)
[2024-04-11] MEDS ORDERED: IOPAMIDOL 370 MG/ML 100 ML INFUS..BTL INJ ONE (08:47)
[2024-04-11] MEDS: Vancomycin IV 2 GM in SODIUM CHLORIDE 0.9% 500ML 500 ML IV ONE (10:51)
[2024-04-11 12:13] LABS: CLARITY,URINE SL CLOUDY (CLEAR); COLOR,URINE YELLOW (YELLOW); LEUKOCYTE ESTERASE ,URINE TRACE (NEGATIVE); PH,URINE 5.5 (5 - 7)
[2024-04-11 12:14] LABS: BILIRUBIN,URINE NEGATIVE (NEGATIVE); GLUCOSE, URINE 500 (NEGATIVE); KETONES,URINE 2+ (NEGATIVE); NITRITE,URINE NEGATIVE (NEGATIVE); PROTEIN,URINE DIPSTICK 2+ (NEGATIVE); URINE UROBILINOGEN 0.2 mg/dL (0.2 - 1)
[2024-04-11 12:30] LABS: BACTERIA,URINE MODERATE /HPF; EPITHELIAL CELLS,URINE MODERATE /LPF; WBC,URINE (MAN) 21-50 /HPF (0-5); YEAST,URINE FEW
[2024-04-11] MEDS ORDERED: HYDRALAZINE HCL 20 MG/ML VIAL IV PRN (13:15)
[2024-04-11] MEDS ORDERED: DEXTROSE 50% SYRINGE 50 ML IV PRN (13:15)
[2024-04-11] MEDS: HYDROCODONE/APAP 10MG-325MG TAB PO PRN (16:12)
[2024-04-11] MEDS: INSULIN LISPRO 100 UNIT/1 ML 3ML VIAL SQ SCH (17:10)
[2024-04-11] MEDS: ONDANSETRON HCL INJ 2MG/ML 2ML 2 MG/ML VIAL IV PRN (18:14)
[2024-04-11] MEDS: ENOXAPARIN SOD INJ 40 MG/0.4 ML SYR SC SCH (20:51)
[2024-04-11] MEDS: Vancomycin IV 1 GM in SODIUM CHLORIDE 0.9% 250ML 250 ML IV SCH ×2 (20:51→23:34)
[2024-04-12] VITALS (8 sets, daily range): BP systolic 113–136; BP diastolic 73–88; PULSE 105–121; RESP 12–20; TEMP 97.7–98.8; O2SAT 93–98
[2024-04-12 05:42] LABS: BASOPHILS % 0.2 % (0.0-1.0); EOSINOPHILS % 0.1 % (0.0-6.0); HEMATOCRIT 41.6 % (38.2-49.6); HEMOGLOBIN 13.3 g/dL (14.0-18.0); LYMPHOCYTES # (AUTO) 1.7 (1.0-3.2); LYMPHOCYTES % 9.7 % (18.0-39.1); MEAN CORPUSCULAR HEMOGLOBIN 26.6 pg (28-32); MEAN CORPUSCULAR VOLUME 83.2 fL (81-99); MONOCYTES # (AUTO) 0.9 (0.2-0.8); MONOCYTES % 4.9 % (4.4-11.3); NEUTROPHILS # (AUTO) 14.6 (2.1-6.9); NEUTROPHILS % 84.6 % (38.7-80.0); PLATELET COUNT 177 x10e3/uL (140-360); RED CELL DISTRIBUTION WIDTH 13.4 % (11.7-14.4); WHITE BLOOD COUNT 17.29 x10e3/uL (4.8-10.8)
[2024-04-12 06:18] LABS: ANION GAP 15.7 mmol/L (8-16); CALCIUM 8.5 mg/dL (8.4-10.2); CREATININE, SERUM 0.7 mg/dL (0.72-1.25); POTASSIUM 3.7 mmol/L (3.5-5.1)
[2024-04-12] MEDS: ACETAMINOPHEN 1000 MG/100 ML IV PRN (07:56)
[2024-04-12] MEDS ORDERED: BUPIVACAINE 0.5%/EPI 30 ML SDV INJ ONE (08:48)
[2024-04-12] MEDS: SYNJARDY PO SCH (09:00)
[2024-04-12] MEDS: BUPROPION HCL 200 MG PO SCH (09:00)
[2024-04-12] MEDS ORDERED: ACETAMINOPHEN 1000 MG/100 ML 100 ML IV ONE (09:25)
[2024-04-12] MEDS: FENTANYL CITRATE/PF 100MCG/2 ML INJ ONE (10:25)
[2024-04-12] MEDS ORDERED: ACETAMINOPHEN 1000 MG/100 ML IV ONE (12:15)
[2024-04-12] MEDS ORDERED: METOCLOPRAMIDE HCL 10 MG/2ML VIAL ONE (12:15)
[2024-04-12] MEDS ORDERED: ONDANSETRON HCL INJ 2MG/ML 2ML 2 MG/ML VIAL ONE (12:15)
[2024-04-12] MEDS ORDERED: LIDOCAINE HCL 2% LOCAL INJ 5 ML SDV VIAL INJ ONE (12:15)
[2024-04-12] MEDS ORDERED: DEXMEDETOMIDINE HCL 200 MCG/2 ML VIAL ONE (12:15)
[2024-04-12] MEDS ORDERED: SEVOFLURANE INHAL SOLN 250 ML PEN BTL ONE (12:15)
[2024-04-12] MEDS ORDERED: PROPOFOL IV EMULSION 10 MG/ML 20 ML VIAL ONE (12:15)
[2024-04-12] MEDS ORDERED: MIDAZOLAM HCL 2 MG/2 ML VIAL ONE (12:27)
[2024-04-12] MEDS ORDERED: FENTANYL CITRATE/PF 100MCG/2 ML INJ ONE (12:27)
[2024-04-12] MEDS: ATORVASTATIN 40 MG TAB PO SCH (16:32)
[2024-04-12] MEDS: OLMESARTAN 20 MG TAB PO SCH (17:41)
[2024-04-12] MEDS: NEBIVOLOL 10 MG TAB PO SCH (17:41)
[2024-04-12] MEDS: INSULIN GLARGINE 100 UNITS/ML VIAL SQ SCH (21:22)
[2024-04-13] VITALS (8 sets, daily range): BP systolic 114–131; BP diastolic 64–77; PULSE 87–100; RESP 18–20; TEMP 97.5–98.8; O2SAT 94–97
[2024-04-13 05:28] LABS: BASOPHILS % 0.2 % (0.0-1.0); EOSINOPHILS % 0.3 % (0.0-6.0); HEMATOCRIT 36.1 % (38.2-49.6); HEMOGLOBIN 11.5 g/dL (14.0-18.0); LYMPHOCYTES # (AUTO) 1.4 (1.0-3.2); LYMPHOCYTES % 11.1 % (18.0-39.1); MEAN CORPUSCULAR HEMOGLOBIN 26.6 pg (28-32); MEAN CORPUSCULAR HGB CONC 31.9 g/dL (31-35); MEAN CORPUSCULAR VOLUME 83.6 fL (81-99); MONOCYTES # (AUTO) 0.8 (0.2-0.8); MONOCYTES % 5.9 % (4.4-11.3); NEUTROPHILS # (AUTO) 10.6 (2.1-6.9); NEUTROPHILS % 82.1 % (38.7-80.0); PLATELET COUNT 143 x10e3/uL (140-360); RED BLOOD COUNT 4.32 x10e6/uL (4.3-5.7); RED CELL DISTRIBUTION WIDTH 13.4 % (11.7-14.4); WHITE BLOOD COUNT 12.87 x10e3/uL (4.8-10.8)
[2024-04-13 06:09] LABS: ANION GAP 9.6 mmol/L (8-16); CALCIUM 8.1 mg/dL (8.4-10.2); CHOL/HDL RATIO 4.1 (3.9-4.7); CREATININE, SERUM 0.73 mg/dL (0.72-1.25); POTASSIUM 3.6 mmol/L (3.5-5.1)
[2024-04-13] MEDS: Vancomycin IV 2 GM in SODIUM CHLORIDE 0.9% 500ML 500 ML IV SCH (06:20)
[2024-04-13] MEDS ORDERED: Vancomycin IV 1 GM in SODIUM CHLORIDE 0.9% 250ML 250 ML IV SCH (06:30)
[2024-04-13] MEDS: INSULIN GLARGINE 100 UNITS/ML VIAL SQ SCH (10:31)
[2024-04-13] MEDS: FLUCONAZOLE 200 MG/100 ML 100 ML IV SCH (11:55)
[2024-04-14 03:11] VITALS: BP 111/70; PULSE 85; RESP 18; TEMP 98.3; O2SAT 96
[2024-04-14 08:10] VITALS: BP 117/62; PULSE 82; RESP 20; TEMP 97.8; O2SAT 98; O2SAT 99
[2024-04-14] MEDS: CEFTRIAXONE 2 GM in SODIUM CHLORIDE 0.9% 100 ML IV SCH (15:21)
[2024-04-14 17:00] VITALS: BP 131/78; PULSE 84; RESP 18; TEMP 98.1; O2SAT 97
[2024-04-14] MEDS ORDERED: VANCOMYCIN 2 GRAM/400 ML (PEG) 400 ML IV SCH (17:00)
[2024-04-14 20:00] VITALS: BP 131/78; PULSE 84; RESP 18; TEMP 98.1; O2SAT 97
[2024-04-14 20:59] VITALS: BP 144/72; PULSE 84; RESP 18; TEMP 98.5; O2SAT 99
[2024-04-15] VITALS (7 sets, daily range): BP systolic 108–133; BP diastolic 56–75; PULSE 76–86; RESP 18–20; TEMP 97.6–98.9; O2SAT 96–100
[2024-04-15] MEDS: SODIUM CHLORIDE 0.9% 250ML 250 ML ONE (20:01)
[2024-04-16] VITALS (7 sets, daily range): BP systolic 100–127; BP diastolic 55–81; PULSE 67–78; RESP 18–20; TEMP 97.5–98.1; O2SAT 94–100
[2024-04-16] MEDS ORDERED: LANTUS 3ML100 UNITS/ SQ (08:41)
[2024-04-16] MEDS: NYSTATIN 15 GM POWDER UD BTL TOP SCH (10:32)
== END 2024-04-16 22:53 | DRG 717 ==
LOC: ER 07:04 → ERHOLD 09:40 → MED/SURG 13:40
PROVIDERS: ADMIT Internal Medicine; ATTEND Internal Medicine
PROC: 0V950ZZ Drainage of Scrotum, Open Approach (ICD-10-PCS; 2024-04-12)
PROC: 02HV33Z Insertion of Infusion Device into Superior Vena Cava, Percutaneous Approach (ICD-10-PCS; principal; 2024-04-13)
DX: N49.2 Inflammatory disorders of scrotum (principal); B37.49 Other urogenital candidiasis; L02.214 Cutaneous abscess of groin; Z68.44 Body mass index [BMI] 60.0-69.9, adult; L03.314 Cellulitis of groin; B95.4 Other streptococcus as the cause of diseases classified elsewhere; E66.01 Morbid (severe) obesity due to excess calories; Z79.84 Long term (current) use of oral hypoglycemic drugs; E11.65 Type 2 diabetes mellitus with hyperglycemia; Z83.3 Family history of diabetes mellitus
CPT/HCPCS: 36415; 36569; 71045; 72193; 76870; 80048; 80053; 80061; 80202; 81001; 82948; 83036; 83605; 85025; 85610; 85730; 87040; 87071; 87075; 87086; 87186; 87205; 93976; 96372; 99252; 99285; J0690; J0696; J1450; J1650; J1815; J2001; J2250; J2270; J2405; J2543; J2765; J7030; J7040; J7050; Q9967; U0002

== ENCOUNTER 2025-05-05 06:07 | Inpatient (IN) | payer OTHER ==
[~2025-05-05] VITALS: Ht 172.7 cm; Wt 174.6 kg
[~2025-05-05 06:07] MED LIST changes: +LANTUS 3ML100 UNITS/ SQ
[2025-05-05] MEDS: SODIUM CHLORIDE 0.9% 1000ML 1,000 ML IV STA (08:25)
[2025-05-05 08:26] LABS: BASOPHILS % 0.3 % (0.0-1.0); EOSINOPHILS % 1.0 % (0.0-6.0); LYMPHOCYTES % 21.2 % (18.0-39.1); MONOCYTES % 5.0 % (4.4-11.3); NEUTROPHILS % 72.2 % (38.7-80.0); RED CELL DISTRIBUTION WIDTH 13.3 % (11.7-14.4)
[2025-05-05] MEDS: PIPERACILLIN/TAZOBACTAM 4.5 GM in SODIUM CHLORIDE 0.9% 100 ML IV ONE (08:27)
[2025-05-05] MEDS: ONDANSETRON HCL INJ 2MG/ML 2ML 2 MG/ML VIAL IV STA (08:27)
[2025-05-05] MEDS: Morphine 4mg INJECTION 4 MG/ML INJ IV STA (08:27)
[2025-05-05] MEDS ORDERED: DEXTROSE 50% SYRINGE 50 ML IV PRN (08:30)
[2025-05-05 08:32] LABS: INR 0.96
[2025-05-05 08:41] LABS: EST GLOMERULAR FILTRATION RATE 129.0 ML/MIN (>=60)
[2025-05-05] MEDS: SODIUM CHLORIDE 0.9% 1000ML 1,000 ML IV SCH (09:58)
[2025-05-05] MEDS: VANCOMYCIN 1.5 GM/300 ML (PEG) 300 ML IV ONE (09:58)
[2025-05-05] MEDS: Morphine 4mg INJECTION 4 MG/ML INJ IV PRN (10:23)
[2025-05-05] MEDS: ONDANSETRON HCL INJ 2MG/ML 2ML 2 MG/ML VIAL IV PRN (10:23)
[2025-05-05] MEDS: INSULIN LISPRO 100 UNIT/1 ML 3ML VIAL SQ SCH (11:30)
[2025-05-05 13:26] VITALS: PULSE 100; RESP 18; TEMP 98.5
[2025-05-05 15:00] VITALS: BP 146/81; PULSE 101; RESP 20; TEMP 98.7; O2SAT 97
[2025-05-05 17:09] VITALS: BP 146/81; PULSE 101; RESP 20; TEMP 98.7; O2SAT 97
[2025-05-05 20:00] VITALS: BP 145/84; PULSE 99; RESP 19; TEMP 97.8; O2SAT 97
[2025-05-05] MEDS: HYDROCODONE/APAP 7.5MG-325MG 1 EA TAB PO PRN (20:15)
[2025-05-05] MEDS: Vancomycin IV 1.25 GM in SODIUM CHLORIDE 0.9% 250ML 250 ML IV SCH (22:31)
[2025-05-05] MEDS ORDERED: VANCOMYCIN 1.25GM/250 ML (PEG) 250 ML IV SCH (23:00)
[2025-05-05] MEDS: MELATONIN 5 MG TABLET PO PRN (23:49)
[2025-05-06] VITALS: BP 121/70; PULSE 97; RESP 19; TEMP 98.7; O2SAT 94
[2025-05-06 07:14] LABS: BASOPHILS % 0.3 % (0.0-1.0); EOSINOPHILS % 1.1 % (0.0-6.0); LYMPHOCYTES % 16.7 % (18.0-39.1); MONOCYTES % 6.0 % (4.4-11.3); NEUTROPHILS % 75.5 % (38.7-80.0); RED CELL DISTRIBUTION WIDTH 13.3 % (11.7-14.4)
[2025-05-06 07:44] LABS: EST GLOMERULAR FILTRATION RATE 129.0 ML/MIN (>=60)
[2025-05-06 09:00] VITALS: BP 152/90; PULSE 100; RESP 22; TEMP 98.8; O2SAT 96
[2025-05-06 16:00] VITALS: BP 144/92; PULSE 102; RESP 17; TEMP 98; TEMP 98.4; O2SAT 98
[2025-05-06 20:00] VITALS: BP 124/75; PULSE 111; RESP 22; TEMP 98; O2SAT 100
[2025-05-06 21:00] VITALS: BP 144/92; PULSE 102; RESP 17; TEMP 98; O2SAT 98
[2025-05-07 08:56] VITALS: BP 141/87; PULSE 97; RESP 19; TEMP 97.9; O2SAT 96
[2025-05-07] MEDS: ENOXAPARIN SOD INJ 40 MG/0.4 ML SYR SC SCH (09:24)
[2025-05-07 11:40] VITALS: BP 144/96; PULSE 102; RESP 18; TEMP 97.4; O2SAT 97
[2025-05-07] MEDS ORDERED: LIDOCAINE HCL 2% LOCAL INJ 5 ML SDV VIAL INJ ONE (13:00)
[2025-05-07] MEDS ORDERED: PROPOFOL IV EMULSION 10 MG/ML 20 ML VIAL ONE (13:00)
[2025-05-07] MEDS ORDERED: ROCURONIUM BROMIDE 1 ML IV ONE (13:00)
[2025-05-07] MEDS ORDERED: SUCCINYLCHOLINE CHLORIDE 20 MG/ML 10ML VIAL ONE (13:04)
[2025-05-07] MEDS ORDERED: KETAMINE HCL INJ 50 MG/ML 10 ML VIAL ONE (14:28)
[2025-05-07] MEDS ORDERED: FENTANYL CITRATE/PF 100MCG/2 ML INJ ONE (14:28)
[2025-05-07] MEDS ORDERED: MIDAZOLAM HCL 2 MG/2 ML VIAL ONE (14:30)
[2025-05-07] MEDS ORDERED: ESMOLOL HCL 100MG/10ML 10 MG/ML VIAL ONE (14:45)
[2025-05-07] MEDS: VANCOMYCIN 1.25GM/250 ML (PEG) 250 ML IV SCH (15:30)
[2025-05-07 15:50] VITALS: BP 134/75; PULSE 104; RESP 17; TEMP 97.7; O2SAT 99
[2025-05-07 19:00] VITALS: BP 140/88; PULSE 111; RESP 18; TEMP 98.8; O2SAT 99
[2025-05-07 21:00] VITALS: BP 140/88; PULSE 111; RESP 18; TEMP 98.8; O2SAT 99
[2025-05-07 22:17] VITALS: BP 144/92; PULSE 102; RESP 17; TEMP 98; O2SAT 98
[2025-05-08] VITALS (7 sets, daily range): BP systolic 125–144; BP diastolic 69–91; PULSE 90–103; RESP 16–20; TEMP 98–98.8; O2SAT 97–99
[2025-05-08] MEDS: VANCOMYCIN 1.5 GM/300 ML (PEG) 300 ML IV SCH (17:29)
[2025-05-09] VITALS (7 sets, daily range): BP systolic 132–144; BP diastolic 71–89; PULSE 84–104; RESP 18–20; TEMP 97–98.3; O2SAT 96–99
[2025-05-09] MEDS: NYSTATIN 15 GM POWDER UD BTL TOP SCH (19:21)
[2025-05-10] VITALS (7 sets, daily range): BP systolic 130–140; BP diastolic 67–94; PULSE 72–92; RESP 16–18; TEMP 97.3–98.3; O2SAT 97–100
[2025-05-10] MEDS: INSULIN LISPRO 100 UNIT/1 ML 3ML VIAL SQ SCH (09:13)
[2025-05-10] MEDS: INSULIN GLARGINE 100 UNITS/ML VIAL SQ SCH (09:32)
[2025-05-11] VITALS (7 sets, daily range): BP systolic 124–137; BP diastolic 60–91; PULSE 56–89; RESP 17–20; TEMP 97.2–98.1; O2SAT 97–100
[2025-05-12] VITALS: BP 136/83; PULSE 78; RESP 18; TEMP 97.9; O2SAT 98
[2025-05-12 04:00] VITALS: BP 124/76; PULSE 68; RESP 20; TEMP 97; O2SAT 100
[2025-05-12 08:00] VITALS: BP 124/76; PULSE 68; RESP 20; TEMP 97; O2SAT 100
[2025-05-12 09:29] VITALS: BP 132/79; PULSE 67; RESP 19; TEMP 97.5; O2SAT 100
[2025-05-12 12:43] VITALS: BP 131/91; PULSE 98; RESP 20; TEMP 97.6; O2SAT 98
[2025-05-12] MEDS ORDERED: ZYVOX600 MG PO (15:09)
[2025-05-12 17:00] VITALS: BP 145/88; PULSE 84; RESP 20; TEMP 98.3; O2SAT 96
== END 2025-05-12 22:07 | disposition home or self-care (01) | DRG 580 ==
LOC: ER 06:50 → ERHOLD 08:27 → MED/SURG2 13:40
PROVIDERS: ADMIT Internal Medicine; ATTEND Internal Medicine
PROC: 02HV33Z Insertion of Infusion Device into Superior Vena Cava, Percutaneous Approach (ICD-10-PCS; 2025-05-05)
PROC: 0W9F0ZZ Drainage of Abdominal Wall, Open Approach (ICD-10-PCS; principal; 2025-05-07 14:27)
DX: L02.211 Cutaneous abscess of abdominal wall (principal); L02.415 Cutaneous abscess of right lower limb; E66.01 Morbid (severe) obesity due to excess calories; Z68.43 Body mass index [BMI] 50.0-59.9, adult; L03.311 Cellulitis of abdominal wall; E11.65 Type 2 diabetes mellitus with hyperglycemia; I10 Essential (primary) hypertension; M79.3 Panniculitis, unspecified; Z91.199 Patient's noncompliance with other medical treatment and regimen due to unspecified reason; Z79.4 Long term (current) use of insulin; Z79.84 Long term (current) use of oral hypoglycemic drugs; Z86.14 Personal history of Methicillin resistant Staphylococcus aureus infection
CPT/HCPCS: 36415; 36569; 71045; 76705; 80053; 80202; 82948; 85025; 85610; 85730; 87040; 87071; 87075; 87205; 96372; 99252; 99284; J0330; J1650; J1815; J2003; J2250; J2270; J2405; J2543; J3373; J7030; J7050